=== PATIENT | male | born 1970 | race Caucasian/White ===

== ENCOUNTER 2025-05-25 13:05 | Emergency (ER) | payer OTHER ==
[2025-05-25 13:42] VITALS: TEMP 97.8; BMI 28.1
[2025-05-25] MEDS ORDERED: KETOROLAC TROMETHAMINE 15 MG/ML VIAL ONE ×2 (13:47→14:51)
[2025-05-25] MEDS: SODIUM CHLORIDE 0.9% 1000 ML INFUS.BAG IV ONE (13:53)
[2025-05-25] MEDS: KETOROLAC TROMETHAMINE 15 MG/ML VIAL IVPUSH ONE ×2 (13:53→14:58)
[2025-05-25 14:02] LABS: ABSOLUTE IMMATURE GRANULOCYTES 0.04 x10^3/uL (0.0-0.031); BASOPHILS # 0.06 x10^3/uL (0.01-0.08); EOSINOPHIL % 0.3 % (0.8-7.0); EOSINOPHILS # 0.03 x10^3/uL (0.04-0.54); MCHC 34.5 g/dl (32.3-36.5); MEAN CELL VOLUME 92.2 fl (79.0-92.2); MEAN PLT VOLUME 9.8 fl (9.4-12.4); MONOCYTE # 0.63 x10^3/uL (0.30-0.82); MONOCYTE % 6.4 % (5.3-12.2); RDW 12.2 % (12.2-16.1)
[2025-05-25 14:07] LABS: URINE APPEARANCE CLEAR; URINE BILIRUBIN NEGATIVE (NEGATIVE); URINE COLOR YELLOW; URINE GLUCOSE (UA) NEGATIVE (NEGATIVE); URINE KETONE TRACE (NEGATIVE)
[2025-05-25 14:08] LABS: URINE LEUK ESTERASE NEGATIVE (NEGATIVE); URINE NITRITE NEGATIVE (NEGATIVE); URINE PROTEIN TRACE (NEGATIVE); URINE UROBILINOGEN 1.0 mg/dL (0.2-1.0)
[2025-05-25 14:32] LABS: CO2 27.0 mmol/L (21-32); GLUCOSE,RANDOM 151.0 mg/dL (74-106)
[2025-05-25 14:35] LABS: CREATININE 1.3 mg/dL (0.55-1.3); SGOT/AST 62.0 U/L (15-37); SGPT/ALT 90.0 U/L (13-61)
[2025-05-25 14:37] LABS: TOT PROT 8.2 g/dl (6.4-8.2)
[2025-05-25 14:38] LABS: ALK PHOS 105.0 U/L (45-117)
[2025-05-25 15:46] LABS: HIV INTERPRETATION NEGATIVE (NEGATIVE)
[2025-05-25] MEDS: SODIUM CHLORIDE 0.9% 500 ML INFUS.BAG IV ONE (16:03)
[2025-05-25] MEDS ORDERED: TAMSULOSIN HCL 0.4 MG CAP PO ONE (16:56)
[2025-05-25 17:08] VITALS: BP 139/69; PULSE 80; RESP 17
[2025-05-25] MEDS ORDERED: TAMSULOSIN HCL 0.4 MG CAP ONE (17:10)
== END 2025-05-25 17:17 | disposition home or self-care (01) ==
LOC: JER 13:05
PROC: 3E0333Z Introduction of Anti-inflammatory into Peripheral Vein, Percutaneous Approach (ICD-10-PCS; principal; 2025-05-25)
DX: N13.2 Hydronephrosis with renal and ureteral calculous obstruction (principal); R68.83 Chills (without fever)
CPT/HCPCS: 36415; 74176-TC; 80053; 81003; 83605; 83690; 85025; 86803; 87086; 87389; 93005; 93010; 99285-25